=== PATIENT | male | born 1955 | race Caucasian/White ===

== ENCOUNTER 2019-04-04 07:08 | Day surgery (SDC) | payer OTHER ==
[2019-03-31 11:58] VITALS: BMI 26.5
[2019-04-04] MEDS ORDERED: PROPOFOL 20 ML ONE ×2 (07:54)
[2019-04-04 09:23] VITALS: TEMP 97.8
[2019-04-04 09:42] VITALS: BP 131/85; PULSE 63
--- NOTE | 2019-04-06 14:51 | PATH ---
Surgical Pathology Report Patient Name: SANTOSH DOMINGUEZ [facility] [place]. Rec. #: [id number] /Age/Gender: 1955 (Age: 63) / M Account: [id number] Location: [facility] Taken: 04/04/2019 Received: 04/04/2019 Reported: 04/06/2019 Physicians: Galindo Justice M.D. Specimen(s) Received A: BX SECOND PORTION DUODENUM B: BX ANTRUM Clinical History GERD Postoperative diagnosis: Gastritis Final Diagnosis A. SECOND PORTION OF DUODENUM, BIOPSY: DUODENAL MUCOSA WITH NO PATHOLOGIC FINDINGS. B. GASTRIC ANTRUM, BIOPSY: MILD CHRONIC ACTIVE GASTRITIS. IMMUNOSTAIN IS NEGATIVE FOR H. PYLORI ORGANISMS. Electronically Signed June Tao M.D. Gross Description A. Received in formalin, labeled "biopsy second portion of duodenum" are 2 herndon, irregular portions of soft tissue measuring 0.3 and 0.4 cm. in greatest dimension. The specimens are submitted in toto in one cassette. B. Received in formalin, labeled "biopsy gastric antrum" are 2 herndon, irregular portions of soft tissue measuring 0.2 and 0.3 cm. in greatest dimension. The specimens are submitted in toto in one cassette. /04/05/2019 saudi04/05/2019
== END 2019-04-04 09:45 | disposition home or self-care (01) ==
LOC: FASU-ENDO 07:08
PROVIDERS: ATTEND Internal Medicine Gastroenterology
PROC: 0DB68ZX Excision of Stomach, Via Natural or Artificial Opening Endoscopic, Diagnostic (ICD-10-PCS; 2019-04-04)
PROC: 0DB98ZX Excision of Duodenum, Via Natural or Artificial Opening Endoscopic, Diagnostic (ICD-10-PCS; principal; 2019-04-04 09:05)
DX: K29.50 Unspecified chronic gastritis without bleeding (principal); R12 Heartburn
CPT/HCPCS: 88305-TC; 88342-TC